=== PATIENT | male | born 1990 | race Caucasian/White ===

== ENCOUNTER 2018-10-26 16:41 | Inpatient (IN) | payer OTHER ==
[~2018-10-26] VITALS: Ht 188 cm; Wt 136.1 kg
[2018-10-26] MEDS ORDERED: PROAIR HFA8.5 GM (17:27)
[2018-10-26] MEDS ORDERED: OMEPRAZOLE20 MG (17:28)
--- NOTE | 2018-10-26 17:28 | NUR ---
PTE SE RECIBE POR PELVIC PAIN REFIERE PTE.
--- NOTE | 2018-10-26 20:08 | NUR ---
EVALUA PTE.SE ORIENTA A PTE SOBRE [place] MEDICO. PTE REFIERE COMPRENDER. SE REALIZAN MUESTRAS DE LABORATORIO BAJO MEDIDAS ASEPTICAS. SE ADMINISTRAN MEDICAMENTOS MARYJANE ORDEN MEDICA. SE NOTIFICA CT. PROCEDIMIENTOS LLEVADOS A CABO POR
[2018-11-04] MEDS ORDERED: CIPRO500 MG PO (11:17)
[2018-11-04] MEDS ORDERED: FLAGYL500MG PO (11:17)
[2018-11-04] MEDS ORDERED: PANTOPRAZOLE SO40 MG PO (11:17)
[2018-11-04] MEDS ORDERED: INTESTINEX680 M1 PO (11:17)
== END 2018-11-04 12:21 | disposition home or self-care (01) | DRG 392 ==
LOC: ER 16:41 → SURG 10-27 15:42 → MEDJ 10-30 18:09
PROVIDERS: ADMIT Internal Medicine
PROC: 3E0F7GC Introduction of Other Therapeutic Substance into Respiratory Tract, Via Natural or Artificial Opening (ICD-10-PCS; principal; 2018-10-27)
PROC: B54MZZZ Ultrasonography of Right Upper Extremity Veins (ICD-10-PCS; 2018-10-31)
DX: K57.32 Diverticulitis of large intestine without perforation or abscess without bleeding (principal); K21.9 Gastro-esophageal reflux disease without esophagitis; G47.33 Obstructive sleep apnea (adult) (pediatric); E86.0 Dehydration; J45.909 Unspecified asthma, uncomplicated; R82.2 Biliuria; E80.6 Other disorders of bilirubin metabolism; I86.8 Varicose veins of other specified sites; R16.0 Hepatomegaly, not elsewhere classified

== ENCOUNTER 2020-10-30 17:08 | Emergency (ER) | payer OTHER ==
[~2020-10-30] VITALS: Ht 188 cm; Wt 142.9 kg
[~2020-10-30 17:08] MED LIST: CIPRO500 MG PO; FLAGYL500MG PO; INTESTINEX680 M1 PO; OMEPRAZOLE20 MG; PANTOPRAZOLE SO40 MG PO; PROAIR HFA8.5 GM
[2020-10-30] MEDS ORDERED: OMEPRAZOLE MAGN20 MG (17:34)
== END 2020-10-30 20:44 | disposition home or self-care (01) ==
LOC: ER 17:08
DX: R42 Dizziness and giddiness (principal)

== ENCOUNTER 2022-11-03 09:30 | Emergency (ER) | payer OTHER ==
[~2022-11-03] VITALS: Ht 188 cm; Wt 130.6 kg
[~2022-11-03 09:30] MED LIST changes: +OMEPRAZOLE MAGN20 MG
[2022-11-03 11:10] LABS: HEMATOCRIT 48.1 % (39.0-48.0); HEMOGLOBIN 15.6 g/dL (13-16.00); MEAN CELL VOLUME 85.6 fL (80.0-100.00); MEAN CORPUSCULAR HEMOGLOBIN 27.7 pg (27.00-32.0); MEAN CORPUSCULAR HGB CONC 32.3 g/dl (32.0-36.0); PLATELET COUNT 168 K/uL (150-450); RED BLOOD COUNT 5.62 M/uL (4.00-6.00); RED CELL DISTRIBUTION WIDTH 14.6 % (11.5-14.5)
== END 2022-11-03 12:35 | disposition home or self-care (01) ==
LOC: ER 09:30
DX: J10.1 Influenza due to other identified influenza virus with other respiratory manifestations (principal); K59.1 Functional diarrhea; Z20.822 Contact with and (suspected) exposure to COVID-19

== ENCOUNTER 2023-10-26 22:23 | Emergency (ER) | payer OTHER ==
[~2023-10-26] VITALS: Ht 188 cm; Wt 140.6 kg
[2023-10-26 22:38] VITALS: BP 144/85; O2SAT 96
[2023-10-27] MEDS ORDERED: KETOROLAC TROMETHAMINE 30 MG VIAL IV STA (00:37)
[2023-10-27] MEDS ORDERED: DIPHENHYDRAMINE HCL 50 MG/ML VIAL 1ML IM STA (00:40)
[2023-10-27] MEDS ORDERED: HALOPERIDOL LACTATE 5 MG/ML AMPUL IM STA (00:40)
[2023-10-27] MEDS ORDERED: DIPHENHYDRAMINE HCL 50 MG/ML VIAL 1ML ONE (01:06)
[2023-10-27] MEDS ORDERED: KETOROLAC TROMETHAMINE 30 MG VIAL ONE (01:06)
[2023-10-27] MEDS ORDERED: HALOPERIDOL LACTATE 5 MG/ML AMPUL ONE (01:07)
[2023-10-27 01:31] LABS: HEMATOCRIT 48.4 % (39.0-48.0); HEMOGLOBIN 16.3 g/dL (13-16.00); MEAN CELL VOLUME 87.2 fL (80.0-100.00); MEAN CORPUSCULAR HEMOGLOBIN 29.3 pg (27.00-32.0); MEAN CORPUSCULAR HGB CONC 33.6 g/dl (32.0-36.0); PLATELET COUNT 219 K/uL (150-450); RED BLOOD COUNT 5.55 M/uL (4.00-6.00); RED CELL DISTRIBUTION WIDTH 14.1 % (11.5-14.5)
[2023-10-27 02:06] LABS: ALBUMIN 4.2 gm/dL (3.4-5.0); BILIRUBIN TOTAL 0.61 mg/dL (0.3-1.2); CALCIUM 9.7 mg/dL (8.5-10.1); CREATININE SERUM 0.8 mg/dL (0.70-1.30); GFR 110.01; POTASSIUM 4.06 mEq/L (3.5-5.1); TOTAL PROTEIN 8.2 gm/dL (6.4-8.2)
== END 2023-10-27 03:43 | disposition home or self-care (01) ==
LOC: ER 22:25
DX: G43.809 Other migraine, not intractable, without status migrainosus (principal)

== ENCOUNTER 2024-01-05 05:56 | Emergency (ER) | payer OTHER ==
[~2024-01-05] VITALS: Ht 188 cm; Wt 140.6 kg
[2024-01-05] MEDS ORDERED: KETOROLAC TROMETHAMINE 30 MG VIAL IV STA (07:07)
[2024-01-05] MEDS ORDERED: DIPHENHYDRAMINE HCL 50 MG CAPSULE PO STA (07:08)
[2024-01-05] MEDS ORDERED: HALOPERIDOL LACTATE 5 MG/ML AMPUL IM STA (07:08)
[2024-01-05] MEDS ORDERED: MECLIZINE HCL 25 MG TABLET PO STA (07:09)
[2024-01-05 08:37] LABS: HEMATOCRIT 48.4 % (39.0-48.0); HEMOGLOBIN 16.1 g/dL (13-16.00); MEAN CELL VOLUME 87.9 fL (80.0-100.00); MEAN CORPUSCULAR HEMOGLOBIN 29.2 pg (27.00-32.0); MEAN CORPUSCULAR HGB CONC 33.2 g/dl (32.0-36.0); PLATELET COUNT 215 K/uL (150-450); RED BLOOD COUNT 5.51 M/uL (4.00-6.00); RED CELL DISTRIBUTION WIDTH 13.9 % (11.5-14.5)
[2024-01-05 09:11] LABS: CALCIUM 9.7 mg/dL (8.5-10.1); CREATININE SERUM 0.86 mg/dL (0.70-1.30); GFR 101.2; POTASSIUM 3.59 mEq/L (3.5-5.1)
[2024-01-05] MEDS ORDERED: HYDROCODONE/CHLORPHEN P-STIREX 5 ML ML PO STA (09:30)
[2024-01-05] MEDS ORDERED: LEVALBUTEROL HCL 1.25 MG/3 ML SOLUTION IH STA (09:36)
== END 2024-01-05 10:38 | disposition home or self-care (01) ==
LOC: ER 05:58
DX: R51.9 Headache, unspecified (principal); R53.81 Other malaise; B34.9 Viral infection, unspecified; Z20.822 Contact with and (suspected) exposure to COVID-19